=== PATIENT | male | born 1995 | race Caucasian/White ===

== ENCOUNTER 2017-12-28 09:27 | Emergency (ER) | payer SELFPAY | END 2017-12-28 11:54 | disposition home or self-care (01) | LOC: EDH 09:27 | DX: H61.23 Impacted cerumen, bilateral (principal); Z72.0 Tobacco use ==

== ENCOUNTER 2025-01-19 01:28 | Emergency (ER) | payer OTHER | END 2025-01-19 01:30 | disposition left against medical advice (07) | LOC: EDH 01:28 | DX: R04.0 Epistaxis (principal); Z53.21 Procedure and treatment not carried out due to patient leaving prior to being seen by health care provider ==